=== PATIENT | male | born 1975 | race Hispanic/Latino ===

== ENCOUNTER 2025-01-30 18:14 | Emergency (ER) | payer SELFPAY ==
[~2025-01-30] VITALS: Ht 167.6 cm; Wt 74.0 kg
[2025-01-30 18:31] VITALS: BP 111/72
[2025-01-30 19:00] VITALS: BP 103/67
[2025-01-30] MEDS ORDERED: BACTRIM DS1 TAB PO (19:12)
[2025-01-30 19:30] VITALS: BP 100/65
[2025-01-30] MEDS ORDERED: CIPROFLOXACN500 MG PO (19:35)
== END 2025-01-30 19:41 | disposition home or self-care (01) | DRG 603 ==
LOC: ED 18:14
DX: L03.115 Cellulitis of right lower limb (principal); S80.811A Abrasion, right lower leg, initial encounter; X58.XXXA Exposure to other specified factors, initial encounter